=== PATIENT | female | born 2000 | race Two or more races ===

== ENCOUNTER 2021-11-05 19:00 | Emergency (ER) | payer SELFPAY ==
[~2021-11-05] VITALS: Ht 162.6 cm; Wt 60.0 kg
[2021-11-05 19:03] VITALS: BP 104/68
== END 2021-11-06 00:04 | disposition left against medical advice (07) ==
LOC: ER 19:00
DX: Z53.21 Procedure and treatment not carried out due to patient leaving prior to being seen by health care provider (principal)

== ENCOUNTER 2021-12-19 20:33 | Emergency (ER) | payer SELFPAY ==
[~2021-12-19] VITALS: Ht 157.5 cm; Wt 55.0 kg
[2021-12-19 20:35] VITALS: BP 120/76
== END 2021-12-20 04:03 | disposition left against medical advice (07) ==
LOC: ER 20:33
DX: Z53.21 Procedure and treatment not carried out due to patient leaving prior to being seen by health care provider (principal)